=== PATIENT | female | born 1955 | race Caucasian/White ===

== ENCOUNTER 2023-06-28 20:17 | Emergency (ER) | payer MEDICARE, OTHER ==
[2023-06-28] MEDS: Dicyclomine 20 MG/2 ML SDV IM ONE (22:08)
[2023-06-28] MEDS: Sodium Chloride 0.9% 1,000 ML IV STA (22:09)
[2023-06-28] MEDS: Sodium Chloride 0.9% 10 ML Syringe FLUSH PRN (22:10)
[2023-06-28 22:12] LABS: BASOPHILS PERCENT AUTO 0.1 % (0.0-1.0); HEMOGLOBIN 13.4 gm/dl (12.0-16.0); IMMATURE GRAN ABSOLUTE AUTO 0.04 K/mm3 (0.00-0.05); IMMATURE GRAN PERCENT AUTO 0.3 % (0.0-0.4); LYMPHOCYTES ABSOLUTE AUTO 0.8 K/mm3 (1.0-4.8); LYMPHOCYTES PERCENT AUTO 5.4 % (24.0-44.0); MEAN CORPUSCULAR HEMOGLOBIN 28.9 pg (28.0-32.0); MEAN CORPUSCULAR HGB CONC 33.5 g/dl (32.0-36.0); MEAN CORPUSCULAR VOLUME 86.2 fl (83.0-99.0); MEAN PLATELET VOLUME 10.6 fl (9.4-12.3); MONOCYTES ABSOLUTE AUTO 0.6 K/mm3 (0.0-0.8); NEUTROPHILS ABSOLUTE AUTO 12.8 K/mm3 (1.8-7.7); NEUTROPHILS PERCENT AUTO 90.2 % (41.0-71.0); PLATELET COUNT,PLT 305 K/mm3 (150-400); RED BLOOD CELL COUNT 4.64 M/mm3 (4.10-5.30); WHITE BLOOD CELL COUNT,WBC 14.13 K/mm3 (3.9-11.3)
[2023-06-28] MEDS: Iopamidol 612 MG/ML 100 ML Bottle IVPUSH ONE (22:13)
[2023-06-28 22:14] LABS: APPEARANCE,URINE SLT CLOUDY (Clear); BILIRUBIN,URINE 3+ (Negative); COLOR,URINE YELLOW (Yellow); GLUCOSE,URINE NEGATIVE (Negative); KETONES,URINE 2+ (Negative); LEUKOCYTE ESTERASE,URINE NEGATIVE (Negative); NITRITE,URINE NEGATIVE (Negative); OCCULT BLOOD,URINE TRACE-INTACT (Negative); PH,URINE 5.5 (5.0-8.0); PROTEIN,URINE 3+ (Negative); UROBILINOGEN,URINE 0.2 (0.2-1.0)
[2023-06-28 22:28] LABS: BACTERIA,URINE MODERATE /hpf (FEW); WBC,URINE 0-5 /hpf (0-5)
[2023-06-28 22:29] LABS: MUCUS,URINE FEW /hpf (FEW)
[2023-06-28] MEDS: Famotidine 20 MG/2 ML SDV IVPUSH ONE (22:41)
[2023-06-28] MEDS: Aluminum Hydroxide/Magnesium Hydroxide/Simethicone Susp 30 ML Cup PO ONE (22:42)
[2023-06-28] MEDS: HYDROmorphone 0.5 MG/0.5 ML Syringe IVPUSH ONE (22:42)
[2023-06-28 22:43] LABS: A/G RATIO 0.6 (1-2); ALBUMIN 2.8 g/dl (3.4-5.0); BILIRUBIN TOTAL 0.9 mg/dL (0.2-1.0); BUN/CREATININE RATIO 13.1 (14-18); C-REACTIVE PROTEIN 17.72 mg/dL (<0.30); CALCIUM 9.3 mg/dL (8.5-10.1); CREATININE 1.3 mg/dL (0.55-1.02); EST CRCL DRUG DOSING (CG) 41.95 mL/min; PROTEIN TOTAL,TP 7.3 g/dl (6.4-8.2)
[2023-06-28] MEDS: Ondansetron 4 MG/2 ML SDV IVPUSH ONE (23:03)
== END 2023-06-29 01:40 | disposition home or self-care (01) ==
LOC: JD.ED 20:17
DX: R19.00 Intra-abdominal and pelvic swelling, mass and lump, unspecified site (principal); K21.9 Gastro-esophageal reflux disease without esophagitis
CPT/HCPCS: 36415; 74177; 74177-26; 80053; 81001; 83690; 85025; 86140; 96361; 96372; 96374; 96375; 99284-25; A9270-GY; J0500; J1170; J2405; J3490; J7030; Q9967

== ENCOUNTER 2024-02-10 03:09 | Emergency (ER) | payer MEDICARE, OTHER ==
[2024-02-10] MEDS: diphenhydrAMINE 50 MG/ML SDV IVPUSH ONE (03:41)
[2024-02-10] MEDS: methylPREDNISolone Sodium Succinate 125 MG/2 ML SDV IVPUSH ONE (03:41)
[2024-02-10] MEDS: LORazepam 2 MG/ML SDV IVPUSH ONE (04:43)
== END 2024-02-10 05:36 | disposition home or self-care (01) ==
LOC: JD.ED 03:09
DX: R13.10 Dysphagia, unspecified (principal); T50.995A Adverse effect of other drugs, medicaments and biological substances, initial encounter; Z88.0 Allergy status to penicillin; Z88.2 Allergy status to sulfonamides; Z88.1 Allergy status to other antibiotic agents; Z79.52 Long term (current) use of systemic steroids; Z79.899 Other long term (current) drug therapy
CPT/HCPCS: 93005; 96374; 96375; 99284; J1200; J2060; J2919

== ENCOUNTER 2024-07-27 14:50 | Emergency (ER) | payer MEDICARE, OTHER ==
[2024-07-27 15:40] LABS: BASOPHILS PERCENT AUTO 0.5 % (0.0-1.0); EOSINOPHILS PERCENT AUTO 1.6 % (0.0-6.0); HEMATOCRIT 35.3 % (37.0-47.0); IMMATURE GRAN ABSOLUTE AUTO 0.03 K/mm3 (0.00-0.05); IMMATURE GRAN PERCENT AUTO 1.6 % (0.0-0.4); LYMPHOCYTES PERCENT AUTO 51.6 % (24.0-44.0); MEAN CORPUSCULAR VOLUME 91.2 fl (83.0-99.0); MONOCYTES ABSOLUTE AUTO 0.4 K/mm3 (0.0-0.8); MONOCYTES PERCENT AUTO 19.8 % (0.0-8.0); NEUTROPHILS ABSOLUTE AUTO 0.5 K/mm3 (1.8-7.7); NEUTROPHILS PERCENT AUTO 24.9 % (41.0-71.0); PLATELET COUNT,PLT 164 K/mm3 (150-400); RED BLOOD CELL COUNT 3.87 M/mm3 (4.10-5.30)
[2024-07-27 15:42] LABS: WHITE BLOOD CELL COUNT,WBC 1.92 K/mm3 (3.9-11.3)
[2024-07-27 15:52] LABS: A/G RATIO 0.9 (1-2); ALBUMIN 3.7 g/dl (3.4-5.0); ANION GAP 16.1 (5-15); BILIRUBIN TOTAL 0.4 mg/dL (0.2-1.0); BUN/CREATININE RATIO 8.9 (14-18); CALCIUM 9.8 mg/dL (8.5-10.1); CREATININE 0.9 mg/dL (0.55-1.02); EST CRCL DRUG DOSING (CG) 59.79 mL/min; MAGNESIUM 1.7 mg/dL (1.8-2.4); POTASSIUM,K 3.1 mEq/L (3.5-5.1); PROTEIN TOTAL,TP 7.8 g/dl (6.4-8.2)
[2024-07-27 16:48] LABS: APPEARANCE,URINE CLEAR (Clear); BILIRUBIN,URINE NEGATIVE (Negative); COLOR,URINE LIGHT YELLOW (Yellow); GLUCOSE,URINE NEGATIVE (Negative); KETONES,URINE NEGATIVE (Negative); LEUKOCYTE ESTERASE,URINE NEGATIVE (Negative); NITRITE,URINE NEGATIVE (Negative); OCCULT BLOOD,URINE NEGATIVE (Negative); PH,URINE 7.5 (5.0-8.0); PROTEIN,URINE NEGATIVE (Negative); UROBILINOGEN,URINE 0.2 (0.2-1.0)
[2024-07-27] MEDS: Potassium Chloride 20 MEQ Tab.ER PO ONE (17:32)
== END 2024-07-27 17:45 | disposition home or self-care (01) ==
LOC: JD.ED 14:50
DX: R07.89 Other chest pain (principal); K29.70 Gastritis, unspecified, without bleeding; E87.6 Hypokalemia; C56.9 Malignant neoplasm of unspecified ovary; Z90.710 Acquired absence of both cervix and uterus; Z88.2 Allergy status to sulfonamides; Z88.0 Allergy status to penicillin; Z88.1 Allergy status to other antibiotic agents
CPT/HCPCS: 36415; 71045; 80053; 81003; 82550; 83690; 83735; 84484; 85025; 93005; 99285; A9270; 93010; 99283